=== PATIENT | female | born 1985 | race Caucasian/White ===

== ENCOUNTER 2016-06-22 12:38 | Inpatient (IN) | payer OTHER ==
[~2016-06-22] VITALS: Ht 149.9 cm; Wt 56.0 kg
[2016-06-22 12:40] VITALS: BP 151/82; PULSE 106; RESP 24; O2SAT 95
[2016-06-22 13:58] VITALS: BP 129/63; PULSE 96; RESP 18; TEMP 97.6; O2SAT 97
[2016-06-22] MEDS ORDERED: FOLI5CAP PO (14:51)
[2016-06-22] MEDS ORDERED: CARB300C7 PO (14:51)
[2016-06-22] MEDS ORDERED: DIVA125C PO ×2 (14:51)
[2016-06-22] MEDS ORDERED: SENO8.6T5 PO (14:54)
[2016-06-22] MEDS ORDERED: COLA100C3 PO (14:54)
[2016-06-22] MEDS ORDERED: LORazepam 1 MG TAB PO ONE (15:45)
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
[2016-06-22 17:47] LABS: AUTOMATED NEUTROPHIL # 3.4 TH/MM3 (1.8-7.7); EOSINOPHIL # 1.4 TH/MM3 (0-0.4); EOSINOPHIL % 9.3 % (0.0-4.0); HEMATOCRIT 45.4 % (35.0-46.0); LYMPH % 66.1 % (9.0-44.0); MEAN CELL VOLUME 93.8 FL (80.0-100.0); MEAN CORPUSCULAR HEMOGLOBIN 32.8 PG (27.0-34.0); MEAN CORPUSCULAR HGB CONC 34.9 % (32.0-36.0); MONO % 1.9 % (0.0-8.0); NEUT % 22.7 % (16.0-70.0); PLATELET COUNT 169 TH/MM3 (150-450); RED BLOOD COUNT 4.84 MIL/MM3 (4.00-5.30); RED CELL DISTRIBUTION WIDTH 11.7 % (11.6-17.2); WHITE BLOOD COUNT 15.2 TH/MM3 (4.0-11.0)
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
[2016-06-22 17:50] LABS: HEMO FLAGS AUTO DIFF
[2016-06-22 18:00] VITALS: BP 133/54; PULSE 91; RESP 16; TEMP 98; O2SAT 97
[2016-06-22 18:00] LABS: ANION GAP 12 MEQ/L (5-15); BICARBONATE 18.2 MEQ/L (21.0-32.0); BLOOD UREA NITROGEN 14 MG/DL (7-18); CHLORIDE 107 MEQ/L (98-107); GLOMERULAR FILTRATION RATE 99 ML/MIN (>89); POTASSIUM 4.4 MEQ/L (3.5-5.1); SODIUM (NA) 137 MEQ/L (136-145)
[2016-06-22 18:36] LABS: BANDS 1 % (0-6); NEUTROPHIL # MANUAL DIFF 8.1 TH/MM3 (1.8-7.7); PLATELET ESTIMATE SMEAR NORMAL (NORMAL); PLATELET MORPHOLOGY NORMAL (NORMAL); POLYS (SEG NEUTROPHILS) 52 % (16-70); SCAN/DIFF FINAL DIFF MANUAL; WBC DIFF SAMPLE 100
[2016-06-22] MEDS ORDERED: ALUMINUM/MAGNESIUM/SIMETH 30 ML CUP PO PRN (20:15)
[2016-06-22] MEDS ORDERED: ACETAMINOPHEN 325 MG TAB PO PRN (20:15)
[2016-06-22] MEDS ORDERED: DOCUSATE SODIUM 100 MG CAP PO SCH (20:15)
[2016-06-22] MEDS ORDERED: BENZTROPINE MESYLATE 2 MG/2 ML VIAL IM PRN (20:15)
[2016-06-22] MEDS ORDERED: BENZTROPINE MESYLATE 1 MG TAB PO PRN (20:15)
[2016-06-22] MEDS ORDERED: LORazepam 2 MG/ML VIAL IM PRN (20:15)
[2016-06-22] MEDS ORDERED: diphenhydrAMINE HCL 50 MG CAP PO PRN (20:15)
[2016-06-22] MEDS ORDERED: LORazepam 1 MG TAB PO PRN (20:15)
[2016-06-22] MEDS ORDERED: MAGNESIUM HYDROXIDE SUSP 30 ML CUP PO PRN (20:15)
[2016-06-22 20:31] LABS: AMPHETAMINE, URINE NEG (NEG); BARBITURATES, URINE NEG (NEG); COCAINE, URINE NEG (NEG)
[2016-06-22 20:54] LABS: BLOOD, URINE NEG (NEG); COMMENT (UR) CULT NOT INDICATED; CULTURE IF INDICATED CULT NOT INDICATED; GLUCOSE,URINE NEG (NEG); KETONE, URINE TRACE mg/dL (NEG); MUCUS URINE FEW /lpf (OCC); NITRITE,URINE NEG (NEG); PH, URINE 7.5 (5.0-8.5); SQUAMOUS EPITHELIAL CELL URINE 3 /hpf (0-5); URINE COLOR YELLOW (YELLW/STRAW)
[2016-06-22] MEDS: DIVALPROEX SODIUM SPRINKLES 125 MG CAP PO SCH (21:00)
[2016-06-22] MEDS: carBAMazepine 200 MG TAB PO SCH (21:00)
[2016-06-22] MEDS ORDERED: CEPH-460 PO (21:09)
[2016-06-22] MEDS ORDERED: CEPHALEXIN MONOHYDRATE 500 MG CAP PO ONE (21:15)
[2016-06-22 22:06] VITALS: BP 138/85; PULSE 84; RESP 18; O2SAT 97
[2016-06-22 22:47] VITALS: BP 123/70; PULSE 70; RESP 16; TEMP 98.2
[2016-06-23 05:06] VITALS: BP 138/78; PULSE 90; RESP 16; TEMP 97.9; O2SAT 96
[2016-06-23] MEDS ORDERED: REMOVE OLD PATCH T-DERMAL SCH (09:00)
[2016-06-23] MEDS ORDERED: NICOTINE 21 MG/24 HR PATCH T-DERMAL SCH (09:00)
[2016-06-23] MEDS: carBAMazepine 200 MG TAB PO SCH ×2 (09:10→21:28)
[2016-06-23] MEDS: FOLIC ACID 1 MG TAB PO SCH (09:10)
[2016-06-23] MEDS: DIVALPROEX SODIUM SPRINKLES 125 MG CAP PO SCH ×3 (09:10→21:27)
[2016-06-23] MEDS ORDERED: ALUMINUM/MAGNESIUM/SIMETH 30 ML CUP PO PRN (11:45)
[2016-06-23] MEDS ORDERED: ACETAMINOPHEN 325 MG TAB PO PRN (11:45)
[2016-06-23] MEDS ORDERED: MAGNESIUM HYDROXIDE SUSP 30 ML CUP PO PRN (11:45)
[2016-06-23] MEDS ORDERED: hydrOXYzine HCL 50 MG TAB PO PRN (11:45)
[2016-06-23] MEDS ORDERED: diphenhydrAMINE HCL 50 MG CAP PO PRN (11:45)
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
[2016-06-23 20:13] VITALS: BP 165/59; PULSE 88; RESP 16; TEMP 98.5; O2SAT 97
[2016-06-24 06:12] VITALS: BP 138/66; PULSE 82; RESP 18; O2SAT 97
--- NOTE | 2016-06-24 08:02 | HHI.PR ---
Blank section for building Chart reviewed patient appears medically stable. Patient has refused repeat CBC twice leukocytosis likely due to stress as patient is asymptomatic and afebrile. Will sign off if patient's condition changes or further assistance is needed please reconsult. (Shwetha Rocha) Shwetha Rocha Jun 24, 2016 08:02 Kirti Flores DO Jun 24, 2016 23:01
[2016-06-24] MEDS: carBAMazepine 200 MG TAB PO SCH ×2 (09:53→20:58)
[2016-06-24] MEDS: FOLIC ACID 1 MG TAB PO SCH (09:53)
[2016-06-24] MEDS: SENNOSIDES 8.6 MG TAB PO SCH (09:53)
[2016-06-24] MEDS: DIVALPROEX SODIUM SPRINKLES 125 MG CAP PO SCH ×3 (09:53→20:59)
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
[2016-06-24 23:15] VITALS: BP 134/75; PULSE 70; RESP 16; TEMP 97.6; O2SAT 98
[2016-06-25 06:49] VITALS: BP 118/75; PULSE 75; RESP 18; TEMP 98.5; O2SAT 97
[2016-06-25] MEDS: DIVALPROEX SODIUM SPRINKLES 125 MG CAP PO SCH ×3 (09:41→21:02)
[2016-06-25] MEDS: FOLIC ACID 1 MG TAB PO SCH (09:41)
[2016-06-25] MEDS: carBAMazepine 200 MG TAB PO SCH ×2 (09:41→21:03)
--- NOTE | 2016-06-25 12:04 | HHI.PYPN ---
Subjective Remarks Patient seen in her room with nurse Faye, patient observe prior to my going into the room talking to herself pointing and gesturing at the wall in front of her as if responding to auditory and/or visual stimuli. Patient somewhat vague about that when speaking with her. Patient is speaking quite softly and I lean towards her to better here her. Patient stated to me "do not ever touche me". Will offer patient Abilify 5 mg twice a day if approved by health care surrogate/guarded advocate (patient's mother) Review of Systems Except as stated in HPI: all other systems reviewed are Neg Objective Alert: Yes [place]: Person Mood: Anxious, Calm Affect: Labile, Restricted Memory Intact: Comment (poor) Hallucinations: Auditory (vague), Visual (vague) Delusions: No Delusion Type: Other (somewhat vigilant) Suicidal: Ideation (denies) Homicidal: Ideation (deny) Insight/Judgement Poor Labs Date/Time Procedure Status Source Growth 06/22/16 20:05 Urine Culture - Final Complete Urine Clean Catch Lactobacillus Species Vitals/IOs Vital Signs Date Time Temp Pulse Resp B/P Pulse Ox O2 Delivery O2 Flow Rate FiO2 06/25/16 06:49 98.5 75 18 118/75 97 06/22/16 22:06 Room Air Intake and Output 06/24/16 06/24/16 06/25/16 08:00 16:00 00:00 Intake Total 240 ml Balance 240 ml Assessment & Plan Problem List: (1) Psychotic disorder with hallucinations ICD Code: F06.0 Assessment & Plan Estimated LOS: days patient continues somewhat psychotic is noted talking to herself and looking at blank wall. Will offer Abilify 5 mg twice a day with consent of health care surrogate/guardian advocate Justification for Cont. Inpt. At this time patient would decompensate if placed in a lower level of care Discharge Planning To be determined Request HC Surrog/Guard Advoc?: Yes Arie Rasmussen MD Jun 25, 2016 12:04
[2016-06-25 20:00] VITALS: BP 156/74; PULSE 70; RESP 16; TEMP 97.8; O2SAT 97
[2016-06-26 06:45] VITALS: BP 123/76; PULSE 79; RESP 18; TEMP 98; O2SAT 97
[2016-06-26] MEDS: FOLIC ACID 1 MG TAB PO SCH (10:19)
[2016-06-26] MEDS: SENNOSIDES 8.6 MG TAB PO SCH (10:19)
[2016-06-26] MEDS: DIVALPROEX SODIUM SPRINKLES 125 MG CAP PO SCH ×3 (10:19→21:51)
[2016-06-26] MEDS: carBAMazepine 200 MG TAB PO SCH ×2 (10:20→21:51)
--- NOTE | 2016-06-26 12:29 | HHI.PYPN ---
Subjective Remarks Patient seen in day room with nurse Alysa, chart review, patient sitting at table eating lunch. I did observe patient talking to herself as having a conversation with no one there. Patient was vague when I asked her about this. Though she still remains somewhat vigilant. Will order the Abilify 5 mg twice a day today to be given all with permission of her health care surrogate/ guardian advocate, her mother Review of Systems Except as stated in HPI: all other systems reviewed are Neg Objective Alert: Yes [place]: Person Mood: Anxious, Calm Affect: Labile, Restricted Memory Intact: Comment (poor) Hallucinations: Auditory (vague), Visual (vague) Delusions: No Delusion Type: Other (somewhat vigilant) Suicidal: Ideation (denies) Homicidal: Ideation (deny) Insight/Judgement Poor Labs Date/Time Procedure Status Source Growth 06/22/16 20:05 Urine Culture - Final Complete Urine Clean Catch Lactobacillus Species Vitals/IOs Vital Signs Date Time Temp Pulse Resp B/P Pulse Ox O2 Delivery O2 Flow Rate FiO2 06/26/16 06:45 98.0 79 18 123/76 97 06/22/16 22:06 Room Air Intake and Output 06/25/16 06/25/16 06/26/16 08:00 16:00 00:00 Intake Total 840 ml 840 ml Balance 840 ml 840 ml Assessment & Plan Problem List: (1) Psychotic disorder with hallucinations ICD Code: F06.0 Assessment & Plan Estimated LOS: days patient continues to show signs of auditory hallucinations , see medication suggestion above Justification for Cont. Inpt. At this time patient will decompensate if placed in a lower level of care Discharge Planning To be determined Request HC Surrog/Guard Advoc?: Yes Arie Rasmussen MD Jun 26, 2016 12:29
[2016-06-26 19:20] VITALS: BP 133/92; PULSE 77; RESP 18; TEMP 98.2; O2SAT 97
[2016-06-26] MEDS: ARIPiprazole 5 MG TAB PO SCH (21:53)
--- NOTE | 2016-06-26 23:15 | MB ---
cc: MARCELL ORTA MD DATE OF CONSULTATION 06/26/16 A 30-year-old seen in neurological consultation because of seizures. The patient has a history of apparent cerebral palsy and cognitive impairment. She lives with her parents and she was admitted because of aggressive behavior. There is history of seizures. Unfortunately, I do not have more details and I have not been able to discuss with family. She was admitted under a Saenz Act to the psychiatric unit. She apparently takes Carbamazepine 300 mg twice a day and Depakote dose being 375 mg twice a day. She was added Abilify because of the ongoing behavior problems. She apparently was on Ativan that was stopped in April. The patient has not had any obvious seizures while in the hospital. She has been talking to herself and, when I walked in the room, the patient was conversing with nobody in the room. She has a severely dysarthric speech, but this is probably baseline from her developmental delay. She was pleasant, cooperative and seems to have some understanding as she tried to say Depakote about her medication. She knew her name and seems to be oriented that she is in the hospital. Her pupils were about the same size, reactive. She was able to count fingers in both right and left visual kuo. She ambulates with a right lower extremity spastic presentation, more so than left. The gait is broad base. There may be some focal weakness on the right arm as well. Reflexes were brisk throughout, brisker right leg and plantar extensor response bilaterally. ASSESSMENT History of seizure disorder and developmental delay. Admitted for apparent aggressive behavior. Apparently benzodiazepines discontinued recently. The Depakote level was 60 and Tegretol level 8.2 on admission which was 06/22. I am going to try to get an EEG on her, although this might be difficult because of her probable poor ability to cooperate for the procedure. Would continue these anticonvulsant medication as is and monitor the levels. I will follow this and evidently outpatient neurological followup with her usual neurologist. Thank you for asking us to assist in her care. MD BHUPENDRA Otero/ /5:40 PM /10:54 PM
[2016-06-27 06:07] VITALS: BP 146/76; PULSE 90; RESP 18; TEMP 97.1; O2SAT 100
[2016-06-27] MEDS: ARIPiprazole 5 MG TAB PO SCH ×2 (09:57→21:21)
[2016-06-27] MEDS: FOLIC ACID 1 MG TAB PO SCH (09:57)
[2016-06-27] MEDS: DIVALPROEX SODIUM SPRINKLES 125 MG CAP PO SCH ×3 (09:57→21:21)
[2016-06-27] MEDS: carBAMazepine 200 MG TAB PO SCH ×2 (09:57→21:22)
--- NOTE | 2016-06-27 13:45 | HHI.PYPN ---
Subjective Remarks Patient was seen and case discussed with nursing. Patient interviewed in bed. Mildly irritable during the interview. Poor eye contact. Per nursing has been responding to internal stimuli. Otherwise behaving well on the unit. Compliant with her medications. Objective Alert: Yes [place]: Person Mood: Anxious, Calm Affect: Labile, Restricted Memory Intact: Comment (poor) Hallucinations: Auditory (vague), Visual (vague) Delusions: No Delusion Type: Other (somewhat vigilant) Suicidal: Ideation (denies) Homicidal: Ideation (deny) Insight/Judgement Poor Labs Date/Time Procedure Status Source Growth 06/22/16 20:05 Urine Culture - Final Complete Urine Clean Catch Lactobacillus Species Vitals/IOs Vital Signs Date Time Temp Pulse Resp B/P Pulse Ox O2 Delivery O2 Flow Rate FiO2 06/27/16 06:07 97.1 90 18 146/76 100 Intake and Output 06/26/16 06/26/16 06/27/16 08:00 16:00 00:00 Intake Total 360 ml 720 ml Balance 360 ml 720 ml Assessment & Plan Problem List: (1) 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 Inpt. Patient would decompensate a less restrictive setting Request HC Surrog/Guard Advoc?: Yes Jesus Manuel Flores DO Jun 27, 2016 13:45
--- NOTE | 2016-06-27 17:44 | MG ---
cc: MARCELL MCCONNELL M.D. Lab No: Date: 06/27/2016 Age: 30 Sex: F Race: HISTORY: An EEG was obtained on this 30-year-old patient being evaluated for a history of seizures. There is a history of developmental delay. MEDICATIONS: 1. Depakote. 2. Tegretol. 3. Abilify. DESCRIPTION OF THE RECORD: The patient is awake, talking to herself and anxious during the study. The EEG shows some mixture of rhythms. There is beta activity and there are some alpha rhythms posteriorly. Some intermixed sharp waves are seen in the theta range bilaterally. There is also some delta activity. There is no change with photic stimulation and hyperventilation was not performed. INTERPRETATION: This EEG shows an abnormality characterized by transient sharps and theta rhythms bilaterally. This is suggestive of some diffuse disturbance of cerebral function and possible epileptiform feature but there is no ictal pattern. Marcell Mcconnell MD [facility] /5:36 PM /5:40 PM
[2016-06-27 20:13] VITALS: BP 148/57; PULSE 76; RESP 16; TEMP 97.8; O2SAT 99
[2016-06-28 06:49] VITALS: BP 130/78; PULSE 97; RESP 18; TEMP 97.1
[2016-06-28] MEDS: DIVALPROEX SODIUM SPRINKLES 125 MG CAP PO SCH ×3 (09:55→20:59)
[2016-06-28] MEDS: SENNOSIDES 8.6 MG TAB PO SCH (09:56)
[2016-06-28] MEDS: carBAMazepine 200 MG TAB PO SCH ×2 (09:56→20:59)
[2016-06-28] MEDS: FOLIC ACID 1 MG TAB PO SCH (09:56)
[2016-06-28] MEDS: DOCUSATE SODIUM 100 MG CAP PO SCH (09:56)
[2016-06-28] MEDS: ARIPiprazole 5 MG TAB PO SCH ×2 (09:56→20:59)
--- NOTE | 2016-06-28 13:58 | HHI.PYPN ---
Subjective Remarks Patient was seen and case discussed with nursing. Patient is irritable during the interview. She is frustrated that he cannot understand what she is saying. Mom spoke with nursing and reports a long history of auditory hallucinations. Otherwise patient is behaving well on the unit. Compliant with medications Objective Alert: Yes [place]: Person Mood: Anxious, Calm Affect: Labile, Restricted Memory Intact: Comment (poor) Hallucinations: Auditory (vague), Visual (vague) Delusions: No Delusion Type: Other (somewhat vigilant) Suicidal: Ideation (denies) Homicidal: Ideation (deny) Insight/Judgement Poor Vitals/IOs Vital Signs Date Time Temp Pulse Resp B/P Pulse Ox O2 Delivery O2 Flow Rate FiO2 06/28/16 06:49 97.1 97 18 130/78 06/27/16 20:13 99 Intake and Output 06/27/16 06/27/16 06/28/16 08:00 16:00 00:00 Intake Total 1590 ml Balance 1590 ml Assessment & Plan Problem List: (1) 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 Inpt. Patient will decompensate outside of a less restrictive setting Request HC Surrog/Guard Advoc?: Yes Jesus Manuel Flores DO Jun 28, 2016 13:58
[2016-06-28 19:49] VITALS: BP 128/58; PULSE 77; RESP 18; TEMP 97.4; O2SAT 99
[2016-06-29 06:11] VITALS: BP 125/75; PULSE 70; RESP 16; TEMP 97.3; O2SAT 100
[2016-06-29] MEDS: DIVALPROEX SODIUM SPRINKLES 125 MG CAP PO SCH ×3 (09:42→21:08)
[2016-06-29] MEDS: ARIPiprazole 5 MG TAB PO SCH ×2 (09:43→21:07)
[2016-06-29] MEDS: FOLIC ACID 1 MG TAB PO SCH (09:43)
[2016-06-29] MEDS: carBAMazepine 200 MG TAB PO SCH ×2 (09:43→21:08)
--- NOTE | 2016-06-29 17:11 | HHI.PYPN ---
Subjective Remarks Patient discussed with treatment team and patient's mother and father, chart review, patient's main unit. Patient continues with auditory hallucinations what appears to be perhaps a visual component. Patient compliant medications. No significant behavioral problems. The patient's parents to state she might be more approachable if approached from the front slowly given her warning of staff coming up to her Review of Systems Except as stated in HPI: all other systems reviewed are Neg Objective Alert: Yes [place]: Person Mood: Anxious, Calm Affect: Labile, Restricted Memory Intact: Comment (poor) Hallucinations: Auditory (vague), Visual (vague) Delusions: No Delusion Type: Other (somewhat vigilant) Suicidal: Ideation (denies) Homicidal: Ideation (deny) Insight/Judgement Poor Vitals/IOs Vital Signs Date Time Temp Pulse Resp B/P Pulse Ox O2 Delivery O2 Flow Rate FiO2 06/29/16 06:11 97.3 70 16 125/75 100 Intake and Output 06/28/16 06/28/16 06/29/16 08:00 16:00 00:00 Intake Total 1320 ml 990 ml Balance 1320 ml 990 ml Assessment & Plan Problem List: (1) 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 For now continue medication Justification for Cont. Inpt. At this time the patient would decompensate if placed in the lower level of care Discharge Planning To be determined Request HC Surrog/Guard Advoc?: Yes Arie Rasmussen MD Jun 29, 2016 17:11
[2016-06-29 19:47] VITALS: BP 96/51; PULSE 72; RESP 18; TEMP 97.4; O2SAT 100
[2016-06-30 05:38] VITALS: BP 89/52; PULSE 74; RESP 14; TEMP 98.3; O2SAT 97
[2016-06-30 09:19] VITALS: BP 127/62; PULSE 92
[2016-06-30] MEDS: ARIPiprazole 5 MG TAB PO SCH ×2 (09:21→21:28)
[2016-06-30] MEDS: DIVALPROEX SODIUM SPRINKLES 125 MG CAP PO SCH ×3 (09:21→21:27)
[2016-06-30] MEDS: carBAMazepine 200 MG TAB PO SCH ×2 (09:22→21:28)
[2016-06-30] MEDS: SENNOSIDES 8.6 MG TAB PO SCH (09:22)
[2016-06-30] MEDS: FOLIC ACID 1 MG TAB PO SCH (09:22)
--- NOTE | 2016-06-30 13:14 | HHI.PYPN ---
Subjective Remarks Patient seen in day room with nurse Em, chart review, patient compliant medications. Initially patient was calm pleasant with fair eye contact fairly appropriate with her responses somewhat reluctantly acknowledging the voices though denying them at that time. However after a few minutes it. The patient was at that time responding to internal stimuli. She started him a conversation with herself gesturing and looking in various directions. There is very difficult to regain her attention. However there appears to be some episodes of more focused attention. For now we'll continue medication no change Review of Systems Except as stated in HPI: all other systems reviewed are Neg Objective Alert: Yes [place]: Person Mood: Anxious, Calm Affect: Labile, Restricted Memory Intact: Comment (poor) Hallucinations: Auditory (vague), Visual (vague) Delusions: No Delusion Type: Other (somewhat vigilant) Suicidal: Ideation (denies) Homicidal: Ideation (deny) Insight/Judgement Very poor Vitals/IOs Vital Signs Date Time Temp Pulse Resp B/P Pulse Ox O2 Delivery O2 Flow Rate FiO2 06/30/16 09:19 92 127/62 06/30/16 05:38 98.3 14 97 Intake and Output 06/29/16 06/29/16 06/30/16 08:00 16:00 00:00 Intake Total 0 ml 720 ml 970 ml Balance 0 ml 720 ml 970 ml Assessment & Plan Problem List: (1) 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 Inpt. At this time patient will decompensate if placed on the lower level of care Discharge Planning To be determined Request HC Surrog/Guard Advoc?: Yes Arie Rasmussen MD Jun 30, 2016 13:14
[2016-06-30 19:00] VITALS: BP 112/70; PULSE 88; RESP 14; TEMP 97.9; O2SAT 97
[2016-07-01 06:25] VITALS: BP 128/90; PULSE 67; RESP 16; TEMP 97.5; O2SAT 95
[2016-07-01] MEDS: ARIPiprazole 5 MG TAB PO SCH ×2 (08:46→21:54)
[2016-07-01] MEDS: DIVALPROEX SODIUM SPRINKLES 125 MG CAP PO SCH ×3 (08:46→21:54)
[2016-07-01] MEDS: FOLIC ACID 1 MG TAB PO SCH (08:48)
[2016-07-01] MEDS: carBAMazepine 200 MG TAB PO SCH ×2 (08:48→21:54)
[2016-07-01] MEDS: DOCUSATE SODIUM 100 MG CAP PO SCH (08:50)
--- NOTE | 2016-07-01 11:41 | HHI.PYPN ---
Subjective Remarks Patient seen in her room with nurse Karlee and family practice resident puja, patient initially focused while on us calm cooperative. However after a period of time patient became somewhat distracted appeared be responding to internal stimuli and talking to people who were on the opposite side of the bed from us. Patient scheduled for [place] [facility] tomorrow Review of Systems Except as stated in HPI: all other systems reviewed are Neg Objective Alert: Yes [place]: Person Mood: Anxious, Calm Affect: Labile, Restricted Memory Intact: Comment (poor) Hallucinations: Auditory (vague), Visual (vague) Delusions: No Delusion Type: Other (somewhat vigilant) Suicidal: Ideation (denies) Homicidal: Ideation (deny) Insight/Judgement Very poor Vitals/IOs Vital Signs Date Time Temp Pulse Resp B/P Pulse Ox O2 Delivery O2 Flow Rate FiO2 07/01/16 06:25 97.5 67 16 128/90 95 Intake and Output 06/30/16 06/30/16 07/01/16 08:00 16:00 00:00 Intake Total 240 ml 720 ml 960 ml Balance 240 ml 720 ml 960 ml Assessment & Plan Problem List: (1) 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 Inpt. At this time patient will decompensate if placed in a lower level of care Discharge Planning To be determined Request HC Surrog/Guard Advoc?: Yes Arie Rasmussen MD Jul 01, 2016 11:41
[2016-07-01 19:23] VITALS: BP 115/55; PULSE 73; RESP 16; TEMP 98.5; O2SAT 100
[2016-07-02 05:40] VITALS: BP 146/78; PULSE 87; RESP 18; TEMP 98.3
[2016-07-02] MEDS: SENNOSIDES 8.6 MG TAB PO SCH (09:00)
[2016-07-02] MEDS: FOLIC ACID 1 MG TAB PO SCH (09:00)
[2016-07-02] MEDS: carBAMazepine 200 MG TAB PO SCH ×2 (09:00→20:16)
[2016-07-02] MEDS: DIVALPROEX SODIUM SPRINKLES 125 MG CAP PO SCH ×3 (09:00→20:16)
[2016-07-02] MEDS: ARIPiprazole 5 MG TAB PO SCH ×2 (09:00→20:16)
[2016-07-02] MEDS: DOCUSATE SODIUM 100 MG CAP PO SCH (09:20)
--- NOTE | 2016-07-02 12:10 | HHI.PYPN ---
Subjective Remarks With patient's mother and father, patient retained by Patient Care Director Que calm with parents to be guardian advocate. Patient was calm cooperative with the leader assembler that at times she appeared to be responding to internal stimuli have a conversation with some imaginary person. Patient compliant with medications. For now continue treatment Review of Systems Except as stated in HPI: all other systems reviewed are Neg Objective Alert: Yes [place]: Person Mood: Anxious, Calm Affect: Labile, Restricted Memory Intact: Comment (poor) Hallucinations: Auditory (vague), Visual (vague) Delusions: No Delusion Type: Other (somewhat vigilant) Suicidal: Ideation (denies) Homicidal: Ideation (deny) Insight/Judgement Very poor Vitals/IOs Vital Signs Date Time Temp Pulse Resp B/P Pulse Ox O2 Delivery O2 Flow Rate FiO2 07/02/16 05:40 98.3 87 18 146/78 07/01/16 19:23 100 Intake and Output 07/01/16 07/01/16 07/02/16 08:00 16:00 00:00 Intake Total 360 ml 1230 ml Balance 360 ml 1230 ml Assessment & Plan Problem List: (1) 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 For now continue treatment Justification for Cont. Inpt. At this time patient would decompensate if placed a lower level of care Discharge Planning To be determined Request HC Surrog/Guard Advoc?: Yes Arie Rasmussen MD Jul 02, 2016 12:10
[2016-07-02 18:42] VITALS: BP 129/72; PULSE 68; RESP 16; TEMP 98.1; O2SAT 94
[2016-07-03 05:11] VITALS: BP 112/71; PULSE 86; RESP 16; TEMP 98.6
[2016-07-03] MEDS: FOLIC ACID 1 MG TAB PO SCH (09:00)
[2016-07-03] MEDS: ARIPiprazole 5 MG TAB PO SCH ×2 (09:00→20:59)
[2016-07-03] MEDS: DIVALPROEX SODIUM SPRINKLES 125 MG CAP PO SCH ×3 (10:53→20:59)
[2016-07-03] MEDS: carBAMazepine 200 MG TAB PO SCH ×2 (10:53→21:00)
--- NOTE | 2016-07-03 13:50 | HHI.PYPN ---
Subjective Remarks Patient seen in dayroom with floor staff, chart review, patient continues no behavior problems as cooperative pleasant on the unit though she still is noted to have occasional conversations with her self reporting towards various areas of the room as if responding to visual stimuli also. Patient compliant with medications Review of Systems Except as stated in HPI: all other systems reviewed are Neg Objective Alert: Yes [place]: Person Mood: Anxious, Calm Affect: Labile, Restricted Memory Intact: Comment (poor) Hallucinations: Auditory (vague), Visual (vague) Delusions: No Delusion Type: Other (somewhat vigilant) Suicidal: Ideation (denies) Homicidal: Ideation (deny) Insight/Judgement Poor Vitals/IOs Vital Signs Date Time Temp Pulse Resp B/P Pulse Ox O2 Delivery O2 Flow Rate FiO2 07/03/16 05:11 98.6 86 16 112/71 07/02/16 18:42 94 Intake and Output 07/02/16 07/02/16 07/03/16 08:00 16:00 00:00 Intake Total 120 ml 1560 ml Balance 120 ml 1560 ml Assessment & Plan Problem List: (1) 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 For now continue treatment Justification for Cont. Inpt. At this time patient will decompensate if placed at a lower level of care Discharge Planning To be determined Request HC Surrog/Guard Advoc?: Yes Arie Rasmussen MD Jul 03, 2016 13:50
[2016-07-03 19:32] VITALS: BP 135/63; PULSE 66; RESP 17; TEMP 97.9; O2SAT 100
[2016-07-04 05:58] VITALS: BP 147/69; PULSE 81; RESP 17; TEMP 98.7; O2SAT 95
[2016-07-04] MEDS: carBAMazepine 200 MG TAB PO SCH ×2 (08:42→20:21)
[2016-07-04] MEDS: SENNOSIDES 8.6 MG TAB PO SCH (08:42)
[2016-07-04] MEDS: ARIPiprazole 5 MG TAB PO SCH ×2 (08:44→20:20)
[2016-07-04] MEDS: FOLIC ACID 1 MG TAB PO SCH (08:44)
[2016-07-04] MEDS: DIVALPROEX SODIUM SPRINKLES 125 MG CAP PO SCH ×3 (08:44→20:21)
--- NOTE | 2016-07-04 13:52 | HHI.PYPN ---
Subjective Remarks Pt seen and discussed with staff. Pt is easily agitated and has been responding to internal stimuli on unit. No medication side effects. No SI/HI Review of Systems Psychiatric: COMPLAINS OF: Hallucinations, Agitation Objective Alert: Yes [place]: Person Mood: Anxious Affect: Labile Memory Intact: Comment (poor) Hallucinations: Auditory (vague), Visual (vague) Delusions: No Delusion Type: Other (somewhat vigilant) Suicidal: Ideation (denies) Homicidal: Ideation (deny) Insight/Judgement poor Vitals/IOs Vital Signs Date Time Temp Pulse Resp B/P Pulse Ox O2 Delivery O2 Flow Rate FiO2 07/04/16 05:58 98.7 81 17 147/69 95 Intake and Output 07/03/16 07/03/16 07/04/16 08:00 16:00 00:00 Intake Total 1440 ml 720 ml Balance 1440 ml 720 ml Assessment & Plan Problem List: (1) 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 Estimated LOS: days Justification for Cont. Inpt. impairments in self care and reality construction Request HC Surrog/Guard Advoc?: Yes Jeimy Haji MD Jul 04, 2016 13:52
[2016-07-04 19:00] VITALS: BP 141/76; PULSE 80; RESP 17; TEMP 97.7; O2SAT 96
[2016-07-05 05:11] VITALS: BP 128/84; PULSE 88; RESP 18; TEMP 97.9; O2SAT 98
[2016-07-05] MEDS: ARIPiprazole 5 MG TAB PO SCH ×2 (09:00→20:44)
[2016-07-05] MEDS: carBAMazepine 200 MG TAB PO SCH ×2 (09:43→20:44)
[2016-07-05] MEDS: FOLIC ACID 1 MG TAB PO SCH (09:45)
[2016-07-05] MEDS: DOCUSATE SODIUM 100 MG CAP PO SCH (09:46)
[2016-07-05] MEDS: DIVALPROEX SODIUM SPRINKLES 125 MG CAP PO SCH ×3 (09:54→20:44)
--- NOTE | 2016-07-05 15:56 | HHI.PYPN ---
Subjective Remarks Pt seen and discussed with staff. She was irritable and agitated earlier today and received ativan x1 dose. Compliant with medications. 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 Estimated LOS: days Justification for Cont. Inpt. impairments in reality testing. Request HC Surrog/Guard Advoc?: Yes Jeimy Haji MD Jul 05, 2016 15:56
[2016-07-05 19:33] VITALS: BP 116/59; PULSE 89; RESP 16; TEMP 98.6
[2016-07-06 05:16] VITALS: BP 118/69; PULSE 78; RESP 18; TEMP 97.5; O2SAT 98
[2016-07-06] MEDS: carBAMazepine 200 MG TAB PO SCH ×2 (09:30→20:53)
[2016-07-06] MEDS: ARIPiprazole 5 MG TAB PO SCH ×2 (09:30→20:52)
[2016-07-06] MEDS: DIVALPROEX SODIUM SPRINKLES 125 MG CAP PO SCH ×3 (09:37→20:52)
[2016-07-06] MEDS: SENNOSIDES 8.6 MG TAB PO SCH (09:37)
[2016-07-06] MEDS: FOLIC ACID 1 MG TAB PO SCH (09:37)
--- NOTE | 2016-07-06 16:11 | HHI.PYPN ---
Subjective Remarks Patient discussed with treatment team patient's mother and father medical student Karina, chart reviewed. Family continues to share history with us, now stating that in the past they have noted patient hemming more psychotic irritable angry and labile premenstrually that they can recognize at times various red flags surrounding this may continue through some of her menstrual cycle. Will have a INFORMATION CLERK consult to assess and discuss this with us otherwise family notes the patient appears to be doing somewhat better on the Abilify Review of Systems Except as stated in HPI: all other systems reviewed are Neg Objective Alert: Yes [place]: Person Mood: Calm Affect: Restricted Memory Intact: Comment (poor) Hallucinations: Auditory (vague), Visual (vague) Delusions: No Delusion Type: Other (somewhat vigilant) Suicidal: Ideation (denies) Homicidal: Ideation (deny) Insight/Judgement Very poor Vitals/IOs Vital Signs Date Time Temp Pulse Resp B/P Pulse Ox O2 Delivery O2 Flow Rate FiO2 07/06/16 05:16 97.5 78 18 118/69 98 Intake and Output 07/05/16 07/05/16 07/06/16 08:00 16:00 00:00 Intake Total 480 ml 1560 ml Output Total 0 ml Balance 480 ml 1560 ml Assessment & Plan Problem List: (1) 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 Inpt. At this time patient would significantly decompensate if placed a lower level of care Discharge Planning To be determined Request HC Surrog/Guard Advoc?: Yes Arie Rasmussen MD Jul 06, 2016 16:11
[2016-07-06 21:29] VITALS: BP 110/70; PULSE 80; RESP 18; TEMP 98.5; O2SAT 100
[2016-07-07 06:14] VITALS: BP 110/57; PULSE 62; RESP 16; TEMP 97.1; O2SAT 100
[2016-07-07] MEDS: ARIPiprazole 5 MG TAB PO SCH ×2 (08:40→20:59)
[2016-07-07] MEDS: DIVALPROEX SODIUM SPRINKLES 125 MG CAP PO SCH ×3 (08:40→20:59)
[2016-07-07] MEDS: FOLIC ACID 1 MG TAB PO SCH (08:42)
[2016-07-07] MEDS: carBAMazepine 200 MG TAB PO SCH ×2 (08:42→20:59)
--- NOTE | 2016-07-07 16:10 | HHI.PYPN ---
Subjective Remarks Patient seen in her room with nurse Nils and medical student Kathleen, chart reviewed, patient calm cooperative responsive showing little response to external stimuli at this time did deny hearing voices. Patient was subsequently seen by [employer] ARCHITECT, Dr. Reynolds, Dr. Reynolds subsequently talk to patient's mother on the phone the agreed upon a course of contraception and follow-up Review of Systems Except as stated in HPI: all other systems reviewed are Neg Objective Alert: Yes [place]: Person Mood: Calm Affect: Restricted Memory Intact: Comment (poor) Hallucinations: Auditory (vague), Visual (vague) Delusions: No Delusion Type: Other (somewhat vigilant) Suicidal: Ideation (denies) Homicidal: Ideation (deny) Insight/Judgement Poor Vitals/IOs Vital Signs Date Time Temp Pulse Resp B/P Pulse Ox O2 Delivery O2 Flow Rate FiO2 07/07/16 06:14 97.1 62 16 110/57 100 Intake and Output 07/06/16 07/06/16 07/07/16 08:00 16:00 00:00 Intake Total 960 ml 1470 ml Balance 960 ml 1470 ml Assessment & Plan Problem List: (1) 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 Also was cooperative with gynecological assessment Justification for Cont. Inpt. At this time patient will decompensate if placed in the lower level of care Discharge Planning To be determined Request HC Surrog/Guard Advoc?: Yes Arie Rasmussen MD Jul 07, 2016 16:10
--- NOTE | 2016-07-07 17:10 | HHI.HP ---
HPI Chief Complaint PMS Date Seen: Jul 07, 2016 Travel History International Travel<30 Days: No Contact w/Intl Traveler<30Days: No Known Affected Area: No History of Present Illness HPI Pt is a 30 yo Go virginal female who was admitted to psych unit under Saenz act due to auditory hallucinations and aggressive behavior. She has a pmhx of severe cerebral palsy, seizure disorder. History was taken from patien, coraborated by mother and from chart review as patient not a good historian. Consultation was ordered by ob gyn because patient's mother believes that her mood and aggression is worse a few days prior to her menses and a few days of her menses. Menses q 4 wk, duration 3-5d, light to mod flow, no significant dysmenorrhea. PT was previously diagnosed with PMDD and was started on drospirenone based medication. She did well on medication but she may have had a tia or stroke in April precluding her from estrogen therapy. She has never had a pelvic exam. She has never been sexually active; mom has no concern for sexual abuse. : 0 History Past Medical History Narrative Medical Cerebral palsy, Intellectual disabled, seizure disorder, schizophrenia Obstetric History Obstetric History G0 Past Surgical History Narrative Surgical Cholecystectomy Family History Narrative Family History non-contributory Social History Alcohol Use: No Tobacco Use: No Substance Abuse: No Allergies-Medications (Allergen,Severity, Reaction): Coded Allergies: Aleve (Verified Allergy, Severe, 06/22/16) Risperdal (Verified Allergy, Severe, 06/22/16) Buspar (Verified Allergy, Unknown, 06/22/16) Egg Allergy (Verified Allergy, Unknown, 06/22/16) Paxil (Verified Allergy, Unknown, 06/22/16) Tylenol (Verified Adverse Reaction, Severe, 'hyper activity', 06/24/16) ParentCarrie stated tylenol makes patient "hyper" Caffeine (Verified Adverse Reaction, Unknown, 06/22/16) Uncoded Allergies: FOOD DYES (Allergy, Unknown, 06/22/16) NUTS (Allergy, Unknown, 06/22/16) herbal teas (Adverse Reaction, Unknown, 06/24/16) ParentCarrie stated patient's doctor stated herbal tea "conflicted with medication." Home Meds Active Scripts Cephalexin (Keflex)500 Mg [id number] Mg PO Q12H 7 Days Ref 0 Prov:Natalie Tamez DO 06/22/16 Reported Medications Docusate Sodium (Colace)100 Mg [id number] Mg PO 2XWEEK #60 CAP Ref 0 06/22/16 Sennosides (Senokot)8.6 Mg Tab8.6 Mg PO 4TIMES A WEEK #30 TAB Ref 0 06/22/16 Folic Acid 5 Mg Cap1 Mg PO DAILY Ref 0 06/22/16 Divalproex Sprinkles (Depakote Sprinkles)125 mg Roc816 Mg PO NOON #60 CAP Ref 0 06/22/16 Divalproex Sprinkles (Depakote Sprinkles)125 mg [id number] Mg PO BID Ref 0 06/22/16 Carbamazepine ER 12 HR 300 Mg Ucy877 Mg PO Q12HR #60 CAP Ref 0 06/22/16 Review of Systems ROS Limitations: Poor Historian General / Constitutional: Fever Eyes: Other (poor vision, no change from baseline) Cardiovascular: No: Irregular Rhythm, Chest Pain or Discomfort, Palpitations, Tachycardia, Syncope, Varicosities, Edema, Cyanosis Gastrointestinal: No: Nausea, Vomiting, Diarrhea Neurologic: Seizures Psychiatric: Disorder of Thought Physical Exam Narrative GENERAL: Thin, appears older than age SKIN: Warm and dry. HEAD: Normocephalic and atraumatic. EYES: No scleral icterus. No injection or drainage. NECK: Supple, trachea midline. CARDIOVASCULAR: Regular rate and rhythm without murmurs, gallops, or rubs. RESPIRATORY: Breath sounds equal bilaterally. No accessory muscle use. ABDOMEN/GI: Abdomen soft, non-tender, bowel sounds present, no rebound, no guarding GENITOURINARY: defer External Genitalia: intact and normal in appearance EXTREMITIES: No cyanosis or edema. BACK:scoliosis, right arm cp NEUROLOGICAL: Awake and alert. Motor and sensory grossly within normal limits. Five out of 5 muscle strength in all muscle groups. Normal speech. Data Data Vital Signs Reviewed: Yes Orders Medroxyprogesterone Acetate (Provera) (07/08/16 09:00) Assessment/Plan Problem List: (1) Mood disorder (2) CP (cerebral palsy) (3) psychotic disorder (4) Mild cognitive impairment (5) Psychotic disorder with hallucinations Assessment and Plan 30 yo with h/o PMDD per family; additional pmh includes seizure d/o, schizophrenia, CP, and intellectual disability. Mother states that she had a good response to ocp, no increase in seizures while on medication. Discussed that she is not a candidate for estrogen therapy given her possible TIA. Discussed progesterone only options; pt is afraid of needles so family has opted for po progesterone management. Hospital formulary only has medroxyprogesterone; will start on 10mg daily. If not well tolerated, can transition to mini-pill norethindrone 0.35mg on discharge. Plan discussed with primary physician and mother of pt over the phone. Anju Reynolds MD Jul 07, 2016 17:09
[2016-07-07 19:35] VITALS: BP 111/58; PULSE 84; RESP 17; TEMP 97.3; O2SAT 100
[2016-07-08 05:47] VITALS: BP 109/57; PULSE 73; RESP 16; TEMP 98.9; O2SAT 98
[2016-07-08] MEDS: carBAMazepine 200 MG TAB PO SCH ×2 (08:34→20:59)
[2016-07-08] MEDS: SENNOSIDES 8.6 MG TAB PO SCH (08:34)
[2016-07-08] MEDS: medroxyPROGESTERone ACETATE 10 MG TAB PO SCH (08:34)
[2016-07-08] MEDS: DIVALPROEX SODIUM SPRINKLES 125 MG CAP PO SCH ×3 (08:34→20:59)
[2016-07-08] MEDS: FOLIC ACID 1 MG TAB PO SCH (08:35)
[2016-07-08] MEDS: ARIPiprazole 5 MG TAB PO SCH ×2 (08:35→20:58)
[2016-07-08] MEDS: DOCUSATE SODIUM 100 MG CAP PO SCH (08:35)
--- NOTE | 2016-07-08 12:41 | HHI.PYPN ---
Subjective Remarks Patient seen in day room with nurse Faye and patient's mother. Patient calm appears to be low focus better with her mother and staff at this time. Though staff notices the continues occasional episodes of talking to herself as if responding to internal stimuli. CODE NUMBER STAMPER consult noted reviewed and appreciated and agreed with. For now continue treatment no change. Mother feels her daughter is doing better also Review of Systems Except as stated in HPI: all other systems reviewed are Neg Objective Alert: Yes [place]: Person Mood: Calm Affect: Restricted Memory Intact: Comment (poor) Hallucinations: Auditory (vague), Visual (vague) Delusions: No Delusion Type: Other (somewhat vigilant) Suicidal: Ideation (denies) Homicidal: Ideation (deny) Insight/Judgement Poor Vitals/IOs Vital Signs Date Time Temp Pulse Resp B/P Pulse Ox O2 Delivery O2 Flow Rate FiO2 07/08/16 05:47 98.9 73 16 109/57 98 Intake and Output 07/07/16 07/07/16 07/08/16 08:00 16:00 00:00 Intake Total 720 ml 2310 ml Balance 720 ml 2310 ml Assessment & Plan Problem List: (1) 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 Compliant medications. Justification for Cont. Inpt. At this time patient will decompensate if placed in the lower level of care Discharge Planning To be determined Request HC Surrog/Guard Advoc?: Yes Arie Rasmussen MD Jul 08, 2016 12:41
[2016-07-08 18:18] VITALS: BP 99/68; PULSE 72; RESP 17; TEMP 98.5; O2SAT 97
[2016-07-09 06:22] VITALS: BP 106/62; PULSE 82; RESP 16; TEMP 97.1; O2SAT 100
[2016-07-09] MEDS: medroxyPROGESTERone ACETATE 10 MG TAB PO SCH (08:55)
[2016-07-09] MEDS: DIVALPROEX SODIUM SPRINKLES 125 MG CAP PO SCH ×3 (08:55→21:54)
[2016-07-09] MEDS: FOLIC ACID 1 MG TAB PO SCH (08:56)
[2016-07-09] MEDS: ARIPiprazole 5 MG TAB PO SCH ×2 (08:56→21:54)
[2016-07-09] MEDS: carBAMazepine 200 MG TAB PO SCH ×2 (08:56→21:53)
--- NOTE | 2016-07-09 13:22 | HHI.PYPN ---
Subjective Remarks Patient seen in day room with nurse Faye and medical student Kathleen, chart review, patient calm cooperative pleasant with me, is showing some increased focus with less distraction towards her auditory hallucinations. He is compliant with her medications. No behavioral problems. For now continue treatment Review of Systems Except as stated in HPI: all other systems reviewed are Neg Objective Alert: Yes [place]: Person Mood: Calm Affect: Restricted Memory Intact: Comment (poor) Hallucinations: Auditory (vague), Visual (vague) Delusions: No Delusion Type: Other (somewhat vigilant) Suicidal: Ideation (denies) Homicidal: Ideation (deny) Insight/Judgement Poor Vitals/IOs Vital Signs Date Time Temp Pulse Resp B/P Pulse Ox O2 Delivery O2 Flow Rate FiO2 07/09/16 06:22 97.1 82 16 106/62 100 Intake and Output 07/08/16 07/08/16 07/09/16 08:00 16:00 00:00 Intake Total 240 ml 120 ml 1080 ml Balance 240 ml 120 ml 1080 ml Assessment & Plan Problem List: (1) 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 Compliant medications. Justification for Cont. Inpt. At this time the patient would decompensate if placed in a lower level of care Discharge Planning To be determined Request HC Surrog/Guard Advoc?: Yes Arie Rasmussen MD Jul 09, 2016 13:22
[2016-07-10 05:22] VITALS: BP 129/60; PULSE 73; RESP 18; TEMP 97.4; O2SAT 98
[2016-07-10] MEDS: DIVALPROEX SODIUM SPRINKLES 125 MG CAP PO SCH ×3 (09:05→20:59)
[2016-07-10] MEDS: carBAMazepine 200 MG TAB PO SCH ×2 (09:06→20:59)
[2016-07-10] MEDS: medroxyPROGESTERone ACETATE 10 MG TAB PO SCH (09:06)
[2016-07-10] MEDS: ARIPiprazole 5 MG TAB PO SCH ×2 (09:06→20:59)
[2016-07-10] MEDS: SENNOSIDES 8.6 MG TAB PO SCH (09:07)
[2016-07-10] MEDS: FOLIC ACID 1 MG TAB PO SCH (09:07)
[2016-07-10] MEDS ORDERED: FOLI1TAB4 PO (11:45)
[2016-07-10] MEDS ORDERED: DOCU1CAP39 PO (11:45)
[2016-07-10] MEDS ORDERED: SENN8.6T15 PO (11:45)
[2016-07-10] MEDS ORDERED: MEDR10TA7 PO (11:45)
[2016-07-10] MEDS ORDERED: CARB200T PO (11:45)
[2016-07-10] MEDS ORDERED: ARIP1TAB11 PO (11:45)
[2016-07-10] MEDS ORDERED: LORA-474 PO (11:45)
[2016-07-10] MEDS ORDERED: DIVA125C PO (11:45)
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
[2016-07-10 18:44] VITALS: BP 129/72; PULSE 81; RESP 16; TEMP 97.9; O2SAT 95
[2016-07-11 05:45] VITALS: BP 134/63; PULSE 77; RESP 18; TEMP 98.5; O2SAT 97
[2016-07-11] MEDS: DIVALPROEX SODIUM SPRINKLES 125 MG CAP PO SCH (08:56)
[2016-07-11] MEDS: medroxyPROGESTERone ACETATE 10 MG TAB PO SCH (08:56)
[2016-07-11] MEDS: FOLIC ACID 1 MG TAB PO SCH (08:57)
[2016-07-11] MEDS: carBAMazepine 200 MG TAB PO SCH (08:57)
[2016-07-11] MEDS: ARIPiprazole 5 MG TAB PO SCH (08:57)
== END 2016-07-11 09:45 | disposition home or self-care (01) | DRG 884 ==
LOC: NEPJ 12:38 → NEDA 20:15 → H250 22:39
PROVIDERS: ADMIT Psychiatry & Neurology Psychiatry; ATTEND Psychiatry & Neurology Psychiatry
DX: F06.0 Psychotic disorder with hallucinations due to known physiological condition (principal); F79 Unspecified intellectual disabilities; D72.829 Elevated white blood cell count, unspecified; F32.81 Premenstrual dysphoric disorder; G40.909 Epilepsy, unspecified, not intractable, without status epilepticus; G80.9 Cerebral palsy, unspecified; R31.9 Hematuria, unspecified; G31.84 Mild cognitive impairment of uncertain or unknown etiology; H54.7 Unspecified visual loss; Z72.0 Tobacco use; Z81.8 Family history of other mental and behavioral disorders; Z88.6 Allergy status to analgesic agent; Z91.012 Allergy to eggs; Z91.018 Allergy to other foods
CPT/HCPCS: 80048; 80156; 80164; 80307; 80320; 81001; 84703; 85007; 85027; 87086; 95819; 99284